=== PATIENT | female | born 1990 | race Two or more races ===

== ENCOUNTER 2019-06-23 20:56 | Emergency (ER) | payer BC, OTHER ==
[2019-06-23] MEDS ORDERED: diphenhydrAMINE 25 MG Tab PO ONE (21:51)
[2019-06-23] MEDS ORDERED: Acetaminophen 325 MG Tab PO ONE (21:55)
[2019-06-23 22:09] LABS: ANION GAP 12.6; CHLORIDE,CL 106 mmol/L (101-111); SODIUM,NA 138 mmol/L (135-145)
--- NOTE | 2019-06-23 22:11 | EDM.PDOC ---
ED HPI GENERAL MEDICAL PROBLEM - General Chief Complaint: SLATE MIXER Problem Stated Complaint: INFECTION Time Seen by Provider: 06/23/19 21:05 Source of Information: Reports: Patient, RN Notes Reviewed History Limitations: Reports: No Limitations - History of Present Illness INITIAL COMMENTS - FREE TEXT/NARRATIVE: ED with c/o pelvic pain, yellow vaginal discharge with straining. V Back delivery 3 weeks ago. Group B strep negative but fever prior to delivery. Fever and chills today. Rash to neck breast and upper abdomen, noted spreading to arms this susan. Some itching with rash. Denied any change in diet, or new food. no new products. no nausea or vomiting. Breast feeding. No breast tenderness. No difficulty with . Burning with urination. Stated she had contacted Dr Tran in [place] and told to come to ED. Treatments MANAGER ADVERTISING: Reports: Other (see below) Other Treatments MANAGER ADVERTISING: Ibuprofen 800 mg at 0900. Uterine Pain Score (Numeric/FACES): 3 - Related Data Allergies Allergy/AdvReac Type Severity Reaction Status Date / Time No Known Allergies Allergy Verified 06/23/19 21:12 Home Meds: Home Meds 95/Iron Fum/Folic/Dha [ + Dha Combo Pack] 1 tab PO DAILY [History] Past Medical History HEENT History: Reports: None Cardiovascular History: Reports: None Respiratory History: Reports: None Gastrointestinal History: Reports: None Genitourinary History: Reports: None SLATE MIXER History: Reports: , Other (See Below) Other SLATE MIXER History: 2011 Musculoskeletal History: Reports: None Neurological History: Reports: None Psychiatric History: Reports: None Endocrine/Metabolic History: Reports: None Hematologic History: Reports: None Immunologic History: Reports: None Oncologic (Cancer) History: Reports: None Dermatologic History: Reports: None - Infectious Disease History Infectious Disease History: Reports: None - Past Surgical History Head Surgeries/Procedures: Reports: None HEENT Surgical History: Reports: None Cardiovascular Surgical History: Reports: None Respiratory Surgical History: Reports: None Endocrine Surgical History: Reports: None Musculoskeletal Surgical History: Reports: None Oncologic Surgical History: Reports: None Social & Family History - Family History Family Medical History: Noncontributory - Tobacco Use Smoking Status *Q: Never Smoker Second Hand Smoke Exposure: No - Caffeine Use Caffeine Use: Reports: None - Recreational Drug Use Recreational Drug Use: No ED ROS GENERAL - Review of Systems Review Of Systems: See Below ED EXAM, RENAL/ - Physical Exam Exam: See Below Exam Limited By: No Limitations General Appearance: Alert, No Apparent Distress, Moderate Distress Eye Exam: Bilateral Eye: EOMI Ears: Normal External Exam, Hearing Grossly Normal Nose: Normal Inspection Throat/Mouth: Normal Inspection Head: Atraumatic, Normocephalic Neck: Normal Inspection Respiratory/Chest: No Respiratory Distress, Lungs Clear, Normal Breath Sounds Cardiovascular: Regular Rate, Rhythm GI/Abdominal: Normal Bowel Sounds, Soft, Tender (supropubic) (Female) Exam: Normal External Exam, Uterine Tenderness, Vaginal Discharge ( scant white) Back Exam: Full Range of Motion Extremities: Normal Range of Motion Neurological: Alert, Oriented, Normal Cognition Psychiatric: Normal Affect, Normal Mood Skin Exam: Warm, Dry, Rash (fine erythematous sand paper type upper chest and neck indurated to abdomen, absent on back anticubital fold mild redness. ) Course - Vital Signs Last Recorded V/S: Last Vital Signs Temp 100.0 F 06/23/19 22:31 Pulse 104 H 06/23/19 21:02 Resp 18 06/23/19 21:02 BP 98/58 L 06/23/19 21:02 Pulse Ox 100 06/23/19 21:02 - Orders/Labs/Meds Orders: Active Orders 24 hr Category Date Time Status CULTURE BLOOD [BC] Stat Lab 06/23/19 21:26 Received CULTURE BLOOD [BC] Stat Lab 06/23/19 21:29 Received CULTURE BODY FLUID [RM] Stat Lab 06/23/19 21:40 Received Blood Culture x2 Reflex Set [OM.PC] Stat Oth 06/23/19 21:11 Ordered Labs: Laboratory Tests 06/23/19 06/23/19 06/23/19 Range/Units 21:23 21:26 21:26 WBC 6.5 (5.0-10.0) 10^3/uL RBC 4.45 (4.2-5.4) 10^6/uL Hgb 12.9 (12.0-16.0) g/dL Hct 38.8 (37.0-47.0) % MCV 87.2 (80-100) fL MCH 29.0 (27.0-34.0) pg MCHC 33.2 (33.0-35.0) g/dL Plt Count 272 (150-450) 10^3/uL Neut % (Auto) 74.8 (42.2-75.2) % Lymph % (Auto) 11.2 L (20.5-50.1) % [place] % (Auto) 7.2 (2-8) % Eos % (Auto) 6.8 H (1.0-3.0) % Baso % (Auto) 0.0 (0.0-1.0) % Sodium 138 (135-145) mmol/L Potassium 3.6 (3.6-5.0) mmol/L Chloride 106 (101-111) mmol/L Carbon Dioxide 23.0 (21.0-31.0) mmol/L Anion Gap 12.6 BUN 15 (7-18) mg/dL Creatinine 0.6 (0.6-1.3) mg/dL Est Cr Clr Drug Dosing 98.48 mL/min Estimated GFR (MDRD) > 60 BUN/Creatinine Ratio 25.00 Glucose 95 (74-105) mg/dL Lactic Acid (0.5-2.0) mmol/L Calcium 8.4 (8.4-10.2) mg/dl Total Bilirubin 0.5 (0.2-1.0) mg/dL AST 28 (10-42) IU/L ALT 32 (10-60) IU/L Alkaline Phosphatase 105 (42-121) IU/L Total Protein 7.1 (6.7-8.2) g/dl Albumin 3.4 (3.2-5.5) g/dl Globulin 3.7 Albumin/Globulin Ratio 0.92 Urine Color Yellow (YELLOW) Urine Appearance Slightly cloudy (CLEAR) Urine pH 6.0 (5.0-9.0) Ur Specific [place] >= 1.030 (1.005-1.030) Urine Protein 100 H (NEGATIVE) Urine Glucose (UA) Negative (NEGATIVE) Urine Ketones Negative (NEGATIVE) Urine Occult Blood Trace-intact H (NEGATIVE) Urine Nitrite Negative (NEGATIVE) Urine Bilirubin Negative (NEGATIVE) Urine Urobilinogen 0.2 (0.2-1.0) mg/dL Ur Leukocyte Esterase Small H (NEGATIVE) Urine RBC 0-5 /HPF Urine WBC 30-40 H (0-5/HPF) /HPF Ur Epithelial Cells Few (NOT SEEN) /HPF Amorphous Sediment Few (NOT SEEN) /HPF Urine Bacteria Few (0-FEW/HPF) /HPF Urine Mucus Rare (NOT SEEN) /LPF 06/23/19 Range/Units 21:26 WBC (5.0-10.0) 10^3/uL RBC (4.2-5.4) 10^6/uL Hgb (12.0-16.0) g/dL Hct (37.0-47.0) % MCV (80-100) fL MCH (27.0-34.0) pg MCHC (33.0-35.0) g/dL Plt Count (150-450) 10^3/uL Neut % (Auto) (42.2-75.2) % Lymph % (Auto) (20.5-50.1) % [place] % (Auto) (2-8) % Eos % (Auto) (1.0-3.0) % Baso % (Auto) (0.0-1.0) % Sodium (135-145) mmol/L Potassium (3.6-5.0) mmol/L Chloride (101-111) mmol/L Carbon Dioxide (21.0-31.0) mmol/L Anion Gap BUN (7-18) mg/dL Creatinine (0.6-1.3) mg/dL Est Cr Clr Drug Dosing mL/min Estimated GFR (MDRD) BUN/Creatinine Ratio Glucose (74-105) mg/dL Lactic Acid 1.0 (0.5-2.0) mmol/L Calcium (8.4-10.2) mg/dl Total Bilirubin (0.2-1.0) mg/dL AST (10-42) IU/L ALT (10-60) IU/L Alkaline Phosphatase (42-121) IU/L Total Protein (6.7-8.2) g/dl Albumin (3.2-5.5) g/dl Globulin Albumin/Globulin Ratio Urine Color (YELLOW) Urine Appearance (CLEAR) Urine pH (5.0-9.0) Ur Specific [place] (1.005-1.030) Urine Protein (NEGATIVE) Urine Glucose (UA) (NEGATIVE) Urine Ketones (NEGATIVE) Urine Occult Blood (NEGATIVE) Urine Nitrite (NEGATIVE) Urine Bilirubin (NEGATIVE) Urine Urobilinogen (0.2-1.0) mg/dL Ur Leukocyte Esterase (NEGATIVE) Urine RBC /HPF Urine WBC (0-5/HPF) /HPF Ur Epithelial Cells (NOT SEEN) /HPF Amorphous Sediment (NOT SEEN) /HPF Urine Bacteria (0-FEW/HPF) /HPF Urine Mucus (NOT SEEN) /LPF Meds: Medications Discontinued Medications Generic Name Dose Route Start Last Admin Trade Name Kdq PRN Reason Stop Dose Admin Acetaminophen 650 mg 06/23/19 21:55 06/23/19 22:01 Tylenol PO 06/23/19 21:56 650 mg NOW ONE Administration Amoxicillin/Clavulanate Potassium 1 tab 06/23/19 22:37 06/23/19 22:44 Augmentin 875 Mg/125 Mg PO 06/23/19 22:38 1 tab ONETIME ONE Administration Diphenhydramine HCl 25 mg 06/23/19 21:51 06/23/19 22:01 Benadryl PO 06/23/19 21:52 25 mg ONETIME ONE Administration Departure - Departure Time of Disposition: 22:38 Disposition: Home, Self-Care 01 Condition: Good Clinical Impression: Urinary tract infection Qualifiers: Urinary tract infection type: acute cystitis Hematuria presence: with hematuria Qualified Code(s): N30.01 - Acute cystitis with hematuria - Discharge Information *PRESCRIPTION DRUG MONITORING PROGRAM REVIEWED*: No *COPY OF PRESCRIPTION DRUG MONITORING REPORT IN PATIENT KAM: No Instructions: Urinary Tract Infection, Adult Referrals: PCP,Unobtain [Primary Care Provider] - Forms: ED Department Discharge Additional Instructions: monostat over counter as needed augmentin 875/125 one 2 times daily for one week increase fluids benadryl 25mg one every 4 hours as needed for rash / itching clinic follow up this week Sepsis Event Note - Evaluation Sepsis Screening Result: Possible Sepsis Risk - Focused Exam Vital Signs: Vital Signs Temp Pulse Resp BP Pulse Ox 06/23/19 22:31 100.0 F 06/23/19 21:02 99.5 F 104 H 18 98/58 L 100 Date Exam was Performed: 06/24/19 Time Exam was Performed: 02:55 - My Orders Last 24 Hours: My Active Orders 06/23/19 21:11 Blood Culture x2 Reflex Set [OM.PC] Stat 06/23/19 21:26 CULTURE BLOOD [BC] Stat 06/23/19 21:29 CULTURE BLOOD [BC] Stat 02/02/20 21:40 CULTURE BODY FLUID [RM] Stat - Assessment/Plan Last 24 Hours: My Active Orders 06/23/19 21:11 Blood Culture x2 Reflex Set [OM.PC] Stat 06/23/19 21:26 CULTURE BLOOD [BC] Stat 06/23/19 21:29 CULTURE BLOOD [BC] Stat 06/23/19 21:40 CULTURE BODY FLUID [RM] Stat
[2019-06-23] MEDS ORDERED: Amoxicillin/Clavulanate K 875-125 MG Tab PO ONE (22:37)
== END 2019-06-23 22:50 | disposition home or self-care (01) ==
LOC: DL.ED 20:56
DX: O86.22 Infection of bladder following delivery (principal)
CPT/HCPCS: 36415; 80053; 81001; 83605; 85025; 87040; 87070; 87077; 87210; 87804; 99283; A9270